=== PATIENT | male | born 1960 | race Caucasian/White ===

== ENCOUNTER 2020-06-23 10:30 | Inpatient (IN) ==
[2020-06-17 12:01] LABS: Appearance,Urine CLEAR (Clear); Bilirubin,Urine Negative (Negative); Color,Urine STRAW; Culture Indicated,Urine No; Glucose,Urine (UA) Negative (Negative); Ketones,Urine Negative (Negative); Leukocyte Esterase,Urine Negative /ug (Negative); Nitrate,Urine Negative (Negative); Protein,Urine Negative (Negative); Specific Gravity,Urine 1.006 (1.000-1.035); Urine Blood Negative (Negative); Urobilinogen,Urine Negative
[2020-06-17 13:28] LABS: Basophils # (Auto) 0.09 K/mcL (0.00-0.20); Basophils % (Auto) 1.3 % (0.0-2.0); Eosinophils # (Auto) 0.22 K/mcL (0.00-0.70); Eosinophils % (Auto) 3.2 % (0.0-7.0); Hematocrit 44.4 % (41.0-55.0); Hemoglobin 15.3 g/dL (13.5-16.5); Lymphocytes # (Auto) 2.56 K/mcL (1.50-4.80); Lymphocytes % (Auto) 37.7 % (15.0-49.0); Mean Corpuscular HGB Conc 34.5 g/dL (31.0-36.0); Mean Platelet Volume 9.5 fL (7.4-10.4); Monocytes % (Auto) 7.4 % (1.0-12.0); Neutrophils % (Auto) 50.4 % (38.0-78.0); Platelet Count 313 K/mcL (140-440); RBC 4.53 M/mcL (4.50-5.90); Red Cell Distribution Width 11.9 % (11.5-14.5); WBC 6.8 K/mcL (4.5-11.0)
[2020-06-17 13:47] LABS: Blood Urea Nitrogen 15 mg/dL (6-20); Calcium 9.8 mg/dL (8.6-10.4); Carbon Dioxide 28 mmol/L (22-30); Chloride 102 mmol/L (96-108); Glomerular Filtration Rate 82; Glucose 97 mg/dL (70-105)
[~2020-06-23 10:30] MED LIST: IPRATROPIUM/ALBUTEROL 3 ML AMPUL.NEB NEB PRN; SCOPOLAMINE 1 PATCH PATCH TOPICAL PRN; ceFAZolin 2 GM in DEXTROSE 5% IN WATER 50 ML IV SCH
[2020-06-23] MEDS ORDERED: PROPOFOL 200 MG/20 ML VIAL IV ONE (14:58)
[2020-06-23] MEDS ORDERED: PHENYLEPHRINE 10 MG/ML VIAL ONE (14:58)
[2020-06-23] MEDS ORDERED: LIDOCAINE HCL/PF 100 MG/5 ML SYRINGE IV ONE (14:58)
[2020-06-23] MEDS ORDERED: ONDANSETRON 4 MG/2 ML VIAL ONE (14:58)
[2020-06-23] MEDS ORDERED: TRANEXAMIC ACID 1,000 MG/10 ML VIAL IV ONE ×2 (14:58→17:00)
[2020-06-23] MEDS ORDERED: GLYCOPYRROLATE 0.2 MG/ML VIAL IV ONE (14:58)
[2020-06-23] MEDS ORDERED: MIDAZOLAM 2 MG/2 ML VIAL ONE (14:58)
[2020-06-23] MEDS ORDERED: DEXAMETHASONE 10 MG/ML VIAL ONE (14:58)
[2020-06-23] MEDS ORDERED: ROPIVACAINE HCL/PF 30 ML VIAL IJ ONE (14:58)
[2020-06-23] MEDS ORDERED: KETAMINE 100 MG/ML ML ONE (14:58)
[2020-06-23] MEDS ORDERED: GENTAMICIN SULFATE 800 MG/20 ML VIAL IR ONE (15:21)
[2020-06-23] MEDS ORDERED: BENZOCAINE/MENTHOL 1 LOZENGE PO PRN ×2 (17:00→17:34)
[2020-06-23] MEDS ORDERED: BISACODYL 10 MG SUPP.RECT PR PRN (17:00)
[2020-06-23] MEDS ORDERED: ONDANSETRON 4 MG/2 ML VIAL IV PRN ×2 (17:00→17:34)
[2020-06-23] MEDS ORDERED: FLEETS ADULT ENEMA PR PRN (17:00)
[2020-06-23] MEDS ORDERED: MAGNESIUM HYDROXIDE 30 ML ORAL.SUSP PO PRN (17:00)
[2020-06-23] MEDS ORDERED: ONDANSETRON 4 MG ODT TABLET SL PRN (17:00)
[2020-06-23] MEDS ORDERED: POLYETHYLENE GLYCOL 3350 17 GM PACKET PO PRN (17:00)
[2020-06-23] MEDS ORDERED: BUPIVACAINE 0.5% 50 ML VIAL IJ ONE (17:02)
--- NOTE | 2020-06-23 17:09 | Brief Operative Note ---
Brief Operative Note Date of procedure: 06/23/20 Pre-op diagnosis: left ankle DJD Post-op diagnosis: same Procedure: Left total ankle replacement Grafts/Implants: Yes (inbone total ankle replacement size 4 tibia, 4 talus, 9mm poly ) Anesthesia: GETA Findings: djd ankle Complications: none Surgeon: Jamal Dangelo Tourniquet Time (Minutes): 80 Specimens Removed/Pathology: none sent Condition: stable Disposition: PACU
[2020-06-23] MEDS ORDERED: METHOCARBAMOL 1,000 MG/10 ML VIAL IV PRN (17:34)
[2020-06-23] MEDS ORDERED: IPRATROPIUM/ALBUTEROL 3 ML AMPUL.NEB NEB PRN (17:34)
[2020-06-23] MEDS ORDERED: ACETAMINOPHEN 1,000 MG/100 ML BAG IV ONE (17:34)
[2020-06-23] MEDS ORDERED: fentaNYL 100 MCG/2 ML VIAL IV PRN (17:34)
[2020-06-23] MEDS ORDERED: KETOROLAC 15 MG/ML VIAL IV PRN (17:34)
[2020-06-23] MEDS ORDERED: PROMETHAZINE 25 MG/ML VIAL IV PRN (17:34)
[2020-06-23] MEDS ORDERED: MEPERIDINE 25 MG/ML SYRINGE IV PRN (17:34)
[2020-06-23] MEDS ORDERED: LACTATED RINGERS 1,000 ML IV SCH (17:45)
--- NOTE | 2020-06-23 18:10 | XRay Report ---
CLINICAL INFORMATION: left total ankle replacement COMPARISON: None. FINDINGS: Ankle prostheses is anatomically aligned. No osseous abnormality. Soft tissue swelling seen as expected IMPRESSION: Ankle prostheses anatomically aligned. Interpreted and Authenticated by: Silvano Cm 06/23/20
[2020-06-23] MEDS: 0.9 % SODIUM CHLORIDE 1,000 ML IV SCH (20:15)
[2020-06-23] MEDS: morphine 4 MG/ML VIAL IV PRN ×2 (20:27→22:22)
[2020-06-23] MEDS: HYDROcodone/APAP 10/325MG TABLET PO PRN ×2 (20:29→23:59)
[2020-06-23] MEDS: ASPIRIN 81 MG TAB.CHEW PO SCH (20:30)
[2020-06-23] MEDS: DOCUSATE SODIUM 100 MG CAPSULE PO SCH (20:30)
[2020-06-23] MEDS ORDERED: SENNOSIDES 1 TABLET PO SCH (21:00)
[2020-06-23] MEDS: 0.9 % SODIUM CHLORIDE 10 ML SYRINGE IV SCH (21:16)
[2020-06-24] MEDS: ceFAZolin 1 GM VIAL IV SCH ×2 (01:07→07:53)
[2020-06-24] MEDS: 0.9 % SODIUM CHLORIDE 1,000 ML IV SCH (04:06)
[2020-06-24] MEDS: 0.9 % SODIUM CHLORIDE 10 ML SYRINGE IV SCH (06:02)
[2020-06-24] MEDS: HYDROcodone/APAP 10/325MG TABLET PO PRN ×2 (06:05→10:17)
[2020-06-24] MEDS: ASPIRIN 81 MG TAB.CHEW PO SCH (08:21)
[2020-06-24] MEDS: DOCUSATE SODIUM 100 MG CAPSULE PO SCH (08:21)
--- NOTE | 2020-06-24 09:58 | Operative Note ---
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 PROCEDURE: Right total ankle replacement using INBONE. SURGEON: Jamal Dangelo MD ABRADING MACHINE TENDER: Cole Rutherford PA-C. This providers expertise and technical skill were required throughout the case. The [facility] assisted with preoperative coordination, intraoperative retraction, wound closure, and dressing and splint application, as well as postoperative documentation and care coordination. ANESTHESIA: General. ESTIMATED BLOOD LOSS: 50 mL. TOURNIQUET TIME: 80 minutes. SUMMARY OF PROCEDURE: General anesthesia was attained. The right leg was prepped and draped. A curvilinear incision was made in line with the angiosomes of the right leg. This incision was taken down to the pulse section full thickness, flap down through the retinaculum. The retinaculum was opened. The tibialis anterior was identified. This was mobilized laterally. The deep fascia was opened under the tibialis anterior. The periosteum was elevated off the anterior tibia and the talus was exposed as well. The tibial cutting guide was placed on the anterior aspect of the tibia. Using the guide system as well as a C-arm, the cutting guide was pinned in place. The size 4 nonprophecy cutting guide was then exchanged for the Prophecy cutting guide. The dorsal, medial and lateral cuts were made. Using a threaded pin and a distractor, the piece was removed. The talar guide was next adjusted in place using the Prophecy guide. This was exchanged for the cutting guide. The talar cut was made. We then used the stem alignment guide. This was placed followed by the C-arm bracket. A pedro incision was made in the heel. This was opened with a knife and then spread. A 6 mm drill was then used to drill up the calcaneus and talus into the intramedullary canal of the tibia. The 16 mm reamer was then attached to a threaded shaft and the intramedullary canal of the tibia was reamed for about 5 cm at a 16 mm diameter. The base was reamed at an 18 mm diameter. The 4 stem pieces were next advanced screwing them into each other and advancing them one at a time. The baseplate was next impacted. Using a trial poly and a #4 guide, the position of the talus was adjusted. The talus cutting guide was then pinned into place and the two dorsal pins holes were enlarged using the drill. We then removed the tibial trial and did the stem reaming with a 10 mm long reamer. The talus was next placed. This was a size 4 talus. Position was confirmed clinically and on mini C-arm to be anatomic with no overhang. We then did a trial reduction of the poly and the best combination of range of motion with stability and plantar flexion and dorsiflexion was with a 9 mm poly. This was next inserted. Final C-arm images showed excellent position of the INBONE prosthesis and the tibia as well as in the talus. The tourniquet was let down. All bleeding points were coagulated. The wound was copiously irrigated. The retinacular split was closed with multiple running sutures of 2-0 Vicryl. The subcutaneous tissue was closed with buried 2-0 Monocryl. The skin was closed meticulously with mattress sutures of 3-0 nylon. A sterile compressive dressing was applied followed by a Rachel boot. Sponge and needle count was correct. The patient tolerated the procedure well and was taken to the recovery room in stable condition. DEBBI:ryan Job ID: [id number] Doc ID: [id number] Jamal Dangelo MD
[2020-06-24] MEDS: morphine 4 MG/ML VIAL IV PRN (11:24)
== END 2020-06-24 12:50 | disposition home or self-care (01) | DRG 469 ==
LOC: MEDSUR 11:16
PROVIDERS: ADMIT Orthopaedic Surgery Foot and Ankle Surgery; ATTEND Orthopaedic Surgery Foot and Ankle Surgery